=== PATIENT | male | born 1990 | race African-American/Black ===

== ENCOUNTER 2019-10-19 03:34 | Emergency (ER) | payer MEDICAID, OTHER ==
[~2019-10-19] VITALS: Ht 167.6 cm; Wt 73.0 kg
[2019-10-19] MEDS ORDERED: KETOROLAC 30MG/ML VIAL IM ONE (04:15)
[2019-10-19 04:47] VITALS: BP 132/78
== END 2019-10-19 04:48 | disposition home or self-care (01) ==
LOC: ER 03:34
DX: M54.5 Low back pain (principal); X50.0XXA Overexertion from strenuous movement or load, initial encounter; Y93.89 Activity, other specified; Y92.89 Other specified places as the place of occurrence of the external cause; Y99.8 Other external cause status
CPT/HCPCS: 96372; 99283; J1885